=== PATIENT | male | born 1950 | race Caucasian/White ===

== ENCOUNTER 2018-09-30 12:18 | Inpatient (IN) | payer OTHER ==
[~2018-09-30] VITALS: Ht 180.3 cm; Wt 75.6 kg
[2018-09-30] MEDS ORDERED: ZONI100 PO (13:05)
[2018-09-30] MEDS ORDERED: TOPI25 PO (13:05)
[2018-09-30] MEDS ORDERED: CARB1TAB35 PO (13:05)
[2018-09-30] MEDS ORDERED: AMAN100C12 PO (13:05)
[2018-09-30] MEDS ORDERED: VITAD1000 PO (13:05)
[2018-09-30] MEDS ORDERED: OMEP10 PO (13:05)
[2018-09-30 13:24] LABS: BASOPHILS % (AUTO) 0.5 % (0.0-2.0); EOSINOPHILS % (AUTO) 1.1 % (1.0-6.0); HEMATOCRIT 45.4 % (41-53); HEMOGLOBIN 14.8 g/dL (13.5-17.5); LYMPHOCYTES # (AUTO) 1.1 K/uL (1.0-4.8); LYMPHOCYTES % (AUTO) 15.6 % (22.0-44.0); MEAN CORPUSCULAR HEMOGLOBIN 29.9 pg (26.0-34.0); MEAN CORPUSCULAR HGB CONC 32.6 G/dL (31.0-37.0); MEAN CORPUSCULAR VOLUME 92 fL (80-100); MONOCYTES # (AUTO) 0.8 K/uL (0.1-1.0); MONOCYTES % (AUTO) 11.7 % (2.0-9.0); NEUTROPHILS % (AUTO) 71.1 % (40.0-70.0); PLATELET COUNT (AUTO) 206 K/uL (150-450); RED BLOOD CELL COUNT(AUTO) 4.96 MIL/uL (4.50-5.90); RED CELL DISTRIBUTION WIDTH 13.8 % (11.5-14.5)
[2018-09-30 13:38] LABS: PROTHROMBIN TIME 10.7 SEC (9.4-11.6)
[2018-09-30 14:09] LABS: APPEARANCE,URINE CLOUDY (CLEAR); BILIRUBIN,URINE NEGATIVE (NEGATIVE); GLUCOSE, URINE (UA) NEGATIVE (NEGATIVE); KETONES,URINE NEGATIVE (NEGATIVE); LEUKOCYTE ESTERASE ,URINE SMALL (NEGATIVE); NITRATE,URINE NEGATIVE (NEGATIVE); OCCULT BLOOD,URINE NEGATIVE (NEGATIVE); PROTEIN,URINE NEGATIVE (NEGATIVE); UROBILINOGEN,URINE 0.2 mg/dL (<=1.0)
[2018-09-30 14:14] LABS: AMPHET/METH SCREEN,URINE NEGATIVE (NEGATIVE); BARBITURATE SCREEN, URINE NEGATIVE (NEGATIVE); BENZODIAZEPINES SCREEN,URINE NEGATIVE (NEGATIVE); CANNABINOID SCREEN,URINE NEGATIVE (NEGATIVE); COCAINE SCREEN,URINE NEGATIVE (NEGATIVE); METHADONE SCREEN, URINE NEGATIVE (NEGATIVE); OPIATE SCREEN,URINE NEGATIVE (NEGATIVE); PHENCYCLIDINE SCREEN,URINE NEGATIVE (NEGATIVE)
[2018-09-30 14:24] LABS: BACTERIA,URINE None Seen /HPF (None Seen); RBC,URINE None Seen /HPF (0-2); SQUAMOUS EPITHELIAL CELL,UR Few /LPF (None Seen); WBC,URINE 0-2 /HPF (0-5)
[2018-09-30 14:28] LABS: ANION GAP 8 mmol/L (8-16); CALCIUM, TOTAL 8.5 mg/dL (8.8-10.5); CARBON DIOXIDE 25 mmol/L (22-29); CHLORIDE 105 mmol/L (98-107); CREATININE 1.04 mg/dL (0.60-1.30); GLOMERULAR FILTR. RATE CALC > 60 mL/min (>60); GLUCOSE,RANDOM 99 mg/dL (70-110); POTASSIUM 3.8 mmol/L (3.5-5.1); SODIUM SERUM 138 mmol/L (136-145); UREA NITROGEN, BLOOD 19 mg/dL (7-18)
[2018-09-30 14:34] LABS: ALANINE AMINOTRANSFERASE 30 U/L (12-78); ALBUMIN 3.5 g/dL (3.4-5.0); ALKALINE PHOSPHATASE 97 U/L (46-116); ASPARTATE AMINOTRANSFERASE 25 U/L (15-37); BILIRUBIN,TOTAL 0.5 mg/dL (0.1-1.0)
[2018-09-30] MEDS ORDERED: ASPIRIN 325 MG TABLET PO ONE (15:30)
[2018-09-30] MEDS ORDERED: ONDANSETRON HCL 4 MG/2 ML VIAL IVP ONE (15:30)
[2018-09-30] MEDS ORDERED: 0.9% SODIUM CHLORIDE 10 ML SYRINGE IVP PRN (16:00)
[2018-09-30] MEDS ORDERED: ONDANSETRON HCL 4 MG/2 ML VIAL IVP PRN (16:00)
[2018-09-30] MEDS ORDERED: ACETAMINOPHEN 325 MG TABLET PO PRN ×2 (16:00→20:00)
[2018-09-30] MEDS ORDERED: MAGNESIUM HYDROXIDE SUSPENSION 30 ML UDCUP PO PRN (20:00)
[2018-09-30] MEDS ORDERED: SODIUM CHLORIDE 0.45% 1,000 ML IV ONE (20:15)
[2018-09-30 21:07] VITALS: BP 158/88
[2018-09-30] MEDS: DOCUSATE SODIUM 100 MG CAPSULE PO SCH (21:23)
[2018-09-30] MEDS: FAMOTIDINE 20 MG TABLET PO SCH (21:24)
[2018-09-30] MEDS: HEPARIN SODIUM,PORCINE 5,000 UNITS/ML VIAL SQ SCH (23:37)
[2018-10-01 00:32] VITALS: BP 140/78
[2018-10-01 05:38] VITALS: BP 136/76
[2018-10-01 07:54] VITALS: BP 129/74
[2018-10-01 08:34] LABS: BASOPHILS % (AUTO) 0.5 % (0.0-2.0); EOSINOPHILS % (AUTO) 1.3 % (1.0-6.0); HEMATOCRIT 44.1 % (41-53); HEMOGLOBIN 14.8 g/dL (13.5-17.5); LYMPHOCYTES # (AUTO) 1.9 K/uL (1.0-4.8); LYMPHOCYTES % (AUTO) 22.2 % (22.0-44.0); MEAN CORPUSCULAR HGB CONC 33.7 G/dL (31.0-37.0); MEAN CORPUSCULAR VOLUME 89 fL (80-100); MONOCYTES # (AUTO) 1.1 K/uL (0.1-1.0); NEUTROPHILS # (AUTO) 5.3 K/uL (1.8-7.7); PLATELET COUNT (AUTO) 202 K/uL (150-450); RED BLOOD CELL COUNT(AUTO) 4.94 MIL/uL (4.50-5.90)
[2018-10-01] MEDS: DOCUSATE SODIUM 100 MG CAPSULE PO SCH (08:48)
[2018-10-01] MEDS: FAMOTIDINE 20 MG TABLET PO SCH (08:48)
[2018-10-01] MEDS: HEPARIN SODIUM,PORCINE 5,000 UNITS/ML VIAL SQ SCH (08:49)
[2018-10-01] MEDS ORDERED: ASPIRIN 81 MG CHEWABLE TABLET PO SCH (09:00)
[2018-10-01] MEDS ORDERED: TOPIRAMATE 25 MG TABLET PO SCH (09:00)
[2018-10-01] MEDS ORDERED: CARBIDOPA/LEVODOPA 25-100 MG ER TABLET PO SCH (09:00)
[2018-10-01] MEDS ORDERED: AMANTADINE HCL 100 MG CAPSULE PO SCH (09:00)
[2018-10-01 09:01] LABS: ALANINE AMINOTRANSFERASE 48 U/L (12-78); ALBUMIN 3.5 g/dL (3.4-5.0); ALKALINE PHOSPHATASE 99 U/L (46-116); ANION GAP 8 mmol/L (8-16); ASPARTATE AMINOTRANSFERASE 28 U/L (15-37); BILIRUBIN,TOTAL 0.6 mg/dL (0.1-1.0); CALCIUM, TOTAL 8.8 mg/dL (8.8-10.5); CARBON DIOXIDE 25 mmol/L (22-29); CHLORIDE 106 mmol/L (98-107); CREATININE 0.86 mg/dL (0.60-1.30); GLOMERULAR FILTR. RATE CALC > 60 mL/min (>60); GLUCOSE,RANDOM 93 mg/dL (70-110); POTASSIUM 3.7 mmol/L (3.5-5.1); SODIUM SERUM 139 mmol/L (136-145); TOTAL PROTEIN, SERUM 6.9 g/dL (6.4-8.2); UREA NITROGEN, BLOOD 18 mg/dL (7-18)
[2018-10-01 11:56] VITALS: BP 122/75
[2018-10-01] MEDS ORDERED: ASPI-1182 PO (15:06)
== END 2018-10-01 15:30 | disposition home or self-care (01) | DRG 74 ==
LOC: EMS 12:19 → 5N 18:10
PROVIDERS: ADMIT Internal Medicine; ATTEND Internal Medicine
DX: G90.8 Other disorders of autonomic nervous system (principal); G20 Parkinson's disease; G40.909 Epilepsy, unspecified, not intractable, without status epilepticus; I10 Essential (primary) hypertension; W08.XXXA Fall from other furniture, initial encounter; Y93.89 Activity, other specified; Y92.89 Other specified places as the place of occurrence of the external cause; Y99.8 Other external cause status; Z79.899 Other long term (current) drug therapy
CPT/HCPCS: 70450; 72170; 93005; 93306; 93880; 96361; 96372; 96374; 97116; 97162; 99291; G0378; J1644; J2405

== ENCOUNTER 2021-10-09 18:10 | Inpatient (IN) | payer MEDICAID, OTHER ==
[~2021-10-09] VITALS: Ht 185.4 cm; Wt 78.4 kg
[~2021-10-09 18:10] MED LIST: AMAN100C14 PO; ASPI-1444 PO; CARB1TAB35 PO; CHOL100018 PO; OMEP10 PO; TOPI25 PO; ZONI100C87 PO
[2021-10-09 20:10] LABS: BASOPHILS % (AUTO) 0.5 % (0.0-2.0); EOSINOPHILS % (AUTO) 1.1 % (1.0-6.0); HEMATOCRIT 47.5 % (41-53); HEMOGLOBIN 15.8 g/dL (13.5-17.5); LYMPHOCYTES # (AUTO) 1.6 K/uL (1.0-4.8); LYMPHOCYTES % (AUTO) 21.8 % (22.0-44.0); MEAN CORPUSCULAR HEMOGLOBIN 30.2 pg (26.0-34.0); MEAN CORPUSCULAR HGB CONC 33.3 G/dL (31.0-37.0); MEAN CORPUSCULAR VOLUME 91 fL (80-100); MONOCYTES # (AUTO) 1.1 K/uL (0.1-1.0); MONOCYTES % (AUTO) 15.1 % (2.0-9.0); NEUTROPHILS # (AUTO) 4.6 K/uL (1.8-7.7); NEUTROPHILS % (AUTO) 61.5 % (40.0-70.0); PLATELET COUNT (AUTO) 212 K/uL (150-450); RED BLOOD CELL COUNT(AUTO) 5.24 MIL/uL (4.50-5.90); RED CELL DISTRIBUTION WIDTH 13.8 % (11.5-14.5)
[2021-10-09 20:17] LABS: ANION GAP 12 mmol/L (8-16); CALCIUM, TOTAL 9.5 mg/dL (8.8-10.5); CARBON DIOXIDE 26 mmol/L (22-29); CHLORIDE 101 mmol/L (98-107); CREATININE 0.99 mg/dL (0.60-1.30); GLUCOSE,RANDOM 104 mg/dL (70-110); SODIUM SERUM 139 mmol/L (136-145); UREA NITROGEN, BLOOD 19 mg/dL (7-18)
[2021-10-09 20:18] LABS: GLOMERULAR FILTR. RATE CALC > 60 mL/min (>60)
[2021-10-09 20:21] LABS: INR 1.1 (0.9-1.1); PROTHROMBIN TIME 11.4 SEC (9.4-11.6)
[2021-10-09 20:25] LABS: LACTIC ACID 1.3 mmol/L (0.4-2.0)
[2021-10-09 20:29] LABS: COVID AG,FIA SOURCE NASAL SWAB
[2021-10-09 20:42] LABS: ALANINE AMINOTRANSFERASE 55 U/L (12-78); ALBUMIN 4.1 g/dL (3.4-5.0); ALKALINE PHOSPHATASE 123 U/L (46-116); ASPARTATE AMINOTRANSFERASE 44 U/L (15-37); BILIRUBIN,TOTAL 1.1 mg/dL (0.1-1.0); CREATINE KINASE, TOTAL ONLY 653 U/L (39-308); TOTAL PROTEIN, SERUM 8.6 g/dL (6.4-8.2)
[2021-10-09 21:13] LABS: ERYTHROCYTE SEDIMENTATION RATE 17 MM/HR (0-15)
[2021-10-09] MEDS ORDERED: IOHEXOL 350 MG/ML 100 ML VIAL ONE (21:28)
[2021-10-09] MEDS ORDERED: SODIUM CHLORIDE 0.9% 100 ML ONE (21:28)
[2021-10-10] MEDS ORDERED: ONDANSETRON HCL 4 MG/2 ML VIAL IVP PRN (01:00)
[2021-10-10 01:41] LABS: APPEARANCE,URINE CLEAR (CLEAR); BILIRUBIN,URINE NEGATIVE (NEGATIVE); GLUCOSE, URINE (UA) NEGATIVE (NEGATIVE); KETONES,URINE 40 mg/dL (NEGATIVE); LEUKOCYTE ESTERASE ,URINE NEGATIVE (NEGATIVE); NITRATE,URINE NEGATIVE (NEGATIVE); OCCULT BLOOD,URINE NEGATIVE (NEGATIVE); PH,URINE 6.5 (5.0-8.0); PROTEIN,URINE NEGATIVE (NEGATIVE)
[2021-10-10] MEDS: 1: MAGNESIUM SULFATE 2 GM, MVI, ADULT NO.1 WITH VIT K 10 ML, THIAMINE 100 MG, FOLIC ACID IV SCH ×15 (01:48→21:56)
[2021-10-10 02:30] VITALS: BP 137/82
[2021-10-10 08:53] VITALS: BP 138/71
[2021-10-10] MEDS: CHOLECALCIFEROL (VIT D3) 1,000 UNITS [25 MCG] TABLET NG SCH (09:00)
[2021-10-10] MEDS: TOPIRAMATE 25 MG TABLET NG SCH (09:00)
[2021-10-10] MEDS: AMANTADINE HCL 100 MG CAPSULE NG SCH (09:00)
[2021-10-10] MEDS: OMEPRAZOLE 10 MG CAPSULE NG SCH ×2 (09:00→21:00)
[2021-10-10] MEDS: ASPIRIN 81 MG CHEWABLE TABLET NG SCH (09:00)
[2021-10-10] MEDS: ZONISAMIDE 100 MG CAPSULE NG SCH ×2 (09:00→21:00)
[2021-10-10] MEDS: CARBIDOPA/LEVODOPA 25-100 MG TABLET NG SCH (09:00)
[2021-10-10] MEDS: HEPARIN SODIUM,PORCINE 5,000 UNITS/ML VIAL SQ SCH ×2 (10:22→16:45)
[2021-10-10] MEDS ORDERED: SODIUM CHLORIDE 0.9% 1,000 ML ONE (12:21)
[2021-10-10 15:36] VITALS: BP 131/63
[2021-10-10 19:45] VITALS: BP 127/58
[2021-10-11] MEDS: HEPARIN SODIUM,PORCINE 5,000 UNITS/ML VIAL SQ SCH ×4 (00:25→23:06)
[2021-10-11 04:40] VITALS: BP 142/72
[2021-10-11] MEDS ORDERED: SODIUM CHLORIDE 0.9% 1,000 ML ONE ×3 (07:04→10:14)
[2021-10-11] MEDS: ASPIRIN 81 MG CHEWABLE TABLET NG SCH (09:00)
[2021-10-11] MEDS: OMEPRAZOLE 10 MG CAPSULE NG SCH ×2 (09:00→20:40)
[2021-10-11] MEDS: CARBIDOPA/LEVODOPA 25-100 MG TABLET NG SCH (09:00)
[2021-10-11] MEDS: AMANTADINE HCL 100 MG CAPSULE NG SCH (09:00)
[2021-10-11] MEDS: TOPIRAMATE 25 MG TABLET NG SCH (09:00)
[2021-10-11] MEDS: ZONISAMIDE 100 MG CAPSULE NG SCH ×2 (09:00→20:40)
[2021-10-11] MEDS: CHOLECALCIFEROL (VIT D3) 1,000 UNITS [25 MCG] TABLET NG SCH (09:00)
[2021-10-11] MEDS: 1: MAGNESIUM SULFATE 2 GM, MVI, ADULT NO.1 WITH VIT K 10 ML, THIAMINE 100 MG, FOLIC ACID IV SCH ×10 (10:00→18:30)
[2021-10-11] MEDS ORDERED: LIDOCAINE/PF 2% 5 ML VIAL IM ONE (12:00)
[2021-10-11] MEDS ORDERED: PROPOFOL 1% 20 ML VIAL IVP ONE (12:00)
[2021-10-11 12:27] VITALS: BP 128/68
[2021-10-11] MEDS ORDERED: ACETAMINOPHEN 325 MG TABLET PO PRN (13:15)
[2021-10-11 16:00] VITALS: BP 144/78
[2021-10-11 17:13] LABS: APPEARANCE,URINE CLEAR (CLEAR); BILIRUBIN,URINE NEGATIVE (NEGATIVE); GLUCOSE, URINE (UA) 100 mg/dL (NEGATIVE); KETONES,URINE >=80 mg/dL (NEGATIVE); LEUKOCYTE ESTERASE ,URINE NEGATIVE (NEGATIVE); NITRATE,URINE NEGATIVE (NEGATIVE); OCCULT BLOOD,URINE NEGATIVE (NEGATIVE); PH,URINE 5.5 (5.0-8.0); PROTEIN,URINE TRACE (NEGATIVE); UROBILINOGEN,URINE 0.2 mg/dL (<=1.0)
[2021-10-11 17:15] LABS: BACTERIA,URINE None Seen /HPF (None Seen); RBC,URINE None Seen /HPF (0-2); SQUAMOUS EPITHELIAL CELL,UR None Seen /LPF (None Seen); WBC,URINE None Seen /HPF (0-5)
[2021-10-11 21:13] VITALS: BP 143/77
[2021-10-12 02:50] LABS: GLUCOMETER DEV NAME(LOC) 6N.1; GLUCOSE,POINT OF CARE 145 MG/DL (70-110)
[2021-10-12] MEDS ORDERED: SODIUM CHLORIDE 0.9% 1,000 ML ONE (03:35)
[2021-10-12] MEDS: 1: MAGNESIUM SULFATE 2 GM, MVI, ADULT NO.1 WITH VIT K 10 ML, THIAMINE 100 MG, FOLIC ACID IV SCH ×10 (03:44→16:10)
[2021-10-12 04:22] VITALS: BP 137/70
[2021-10-12 07:13] LABS: EOSINOPHILS % (AUTO) 0 % (1.0-6.0); HEMATOCRIT 43.3 % (41-53); HEMOGLOBIN 14.5 g/dL (13.5-17.5); LYMPHOCYTES % (AUTO) 5.7 % (22.0-44.0); MEAN CORPUSCULAR HEMOGLOBIN 30.7 pg (26.0-34.0); MEAN CORPUSCULAR HGB CONC 33.6 G/dL (31.0-37.0); MEAN CORPUSCULAR VOLUME 91 fL (80-100); MONOCYTES # (AUTO) 1.5 K/uL (0.1-1.0); MONOCYTES % (AUTO) 8.6 % (2.0-9.0); NEUTROPHILS # (AUTO) 14.9 K/uL (1.8-7.7); PLATELET COUNT (AUTO) 176 K/uL (150-450); RED BLOOD CELL COUNT(AUTO) 4.74 MIL/uL (4.50-5.90); RED CELL DISTRIBUTION WIDTH 13.6 % (11.5-14.5)
[2021-10-12 07:21] LABS: NEUTROPHILS % (AUTO) 85.7 % (40.0-70.0)
[2021-10-12 07:40] LABS: ANION GAP 14 mmol/L (8-16); CALCIUM, TOTAL 8.5 mg/dL (8.8-10.5); CARBON DIOXIDE 20 mmol/L (22-29); CHLORIDE 108 mmol/L (98-107); CREATININE 0.74 mg/dL (0.60-1.30); GLUCOSE,RANDOM 121 mg/dL (70-110); POTASSIUM 3.7 mmol/L (3.5-5.1); SODIUM SERUM 142 mmol/L (136-145); UREA NITROGEN, BLOOD 18 mg/dL (7-18)
[2021-10-12 07:50] LABS: GLOMERULAR FILTR. RATE CALC > 60 mL/min (>60)
[2021-10-12] MEDS: ZONISAMIDE 100 MG CAPSULE NG SCH ×2 (08:23→21:03)
[2021-10-12] MEDS: CARBIDOPA/LEVODOPA 25-100 MG TABLET NG SCH ×3 (08:23→21:03)
[2021-10-12] MEDS: AMANTADINE HCL 100 MG CAPSULE NG SCH (08:23)
[2021-10-12] MEDS: TOPIRAMATE 25 MG TABLET NG SCH (08:24)
[2021-10-12] MEDS: CHOLECALCIFEROL (VIT D3) 1,000 UNITS [25 MCG] TABLET NG SCH (08:25)
[2021-10-12] MEDS: HEPARIN SODIUM,PORCINE 5,000 UNITS/ML VIAL SQ SCH ×2 (08:25→16:27)
[2021-10-12] MEDS: OMEPRAZOLE 10 MG CAPSULE NG SCH ×2 (08:26→21:03)
[2021-10-12] MEDS: ASPIRIN 81 MG CHEWABLE TABLET NG SCH (08:26)
[2021-10-12 09:03] VITALS: BP 155/82
[2021-10-12 20:36] VITALS: BP 133/70
[2021-10-13] MEDS: HEPARIN SODIUM,PORCINE 5,000 UNITS/ML VIAL SQ SCH ×3 (01:53→16:02)
[2021-10-13] MEDS ORDERED: SODIUM CL IRRIG SOLN BOTTLE 0 ML IRRIG ONE (02:08)
[2021-10-13] MEDS ORDERED: IPRATROPIUM BROMIDE 0.5 MG/2.5 ML NEB SOLUTION NEB PRN (02:15)
[2021-10-13] MEDS ORDERED: ALBUTEROL SULFATE 2.5 MG/0.5 ML NEB SOLUTION NEB PRN (02:15)
[2021-10-13] MEDS ORDERED: SODIUM CHLORIDE 0.9% 1,000 ML ONE (03:39)
[2021-10-13] MEDS: 1: MAGNESIUM SULFATE 2 GM, MVI, ADULT NO.1 WITH VIT K 10 ML, THIAMINE 100 MG, FOLIC ACID IV SCH ×15 (03:55→20:18)
[2021-10-13 04:39] VITALS: BP 144/78
[2021-10-13 06:55] LABS: BASOPHILS % (AUTO) 0.1 % (0.0-2.0); EOSINOPHILS % (AUTO) 0 % (1.0-6.0); HEMATOCRIT 43.8 % (41-53); HEMOGLOBIN 14.8 g/dL (13.5-17.5); LYMPHOCYTES # (AUTO) 0.9 K/uL (1.0-4.8); LYMPHOCYTES % (AUTO) 7.2 % (22.0-44.0); MEAN CORPUSCULAR HEMOGLOBIN 30.8 pg (26.0-34.0); MEAN CORPUSCULAR HGB CONC 33.8 G/dL (31.0-37.0); MEAN CORPUSCULAR VOLUME 91 fL (80-100); MONOCYTES # (AUTO) 1.2 K/uL (0.1-1.0); MONOCYTES % (AUTO) 9.9 % (2.0-9.0); NEUTROPHILS # (AUTO) 10.4 K/uL (1.8-7.7); NEUTROPHILS % (AUTO) 82.8 % (40.0-70.0); PLATELET COUNT (AUTO) 171 K/uL (150-450); RED BLOOD CELL COUNT(AUTO) 4.81 MIL/uL (4.50-5.90); RED CELL DISTRIBUTION WIDTH 13.9 % (11.5-14.5)
[2021-10-13 07:01] LABS: ANION GAP 12 mmol/L (8-16); CARBON DIOXIDE 21 mmol/L (22-29); CHLORIDE 107 mmol/L (98-107); CREATININE 0.72 mg/dL (0.60-1.30); GLUCOSE,RANDOM 104 mg/dL (70-110); POTASSIUM 3.6 mmol/L (3.5-5.1); SODIUM SERUM 140 mmol/L (136-145); UREA NITROGEN, BLOOD 18 mg/dL (7-18)
[2021-10-13 07:12] LABS: CALCIUM, TOTAL 8.3 mg/dL (8.8-10.5)
[2021-10-13 07:13] LABS: GLOMERULAR FILTR. RATE CALC > 60 mL/min (>60)
[2021-10-13 07:36] VITALS: BP 151/81
[2021-10-13] MEDS: TOPIRAMATE 25 MG TABLET NG SCH (08:16)
[2021-10-13] MEDS: CHOLECALCIFEROL (VIT D3) 1,000 UNITS [25 MCG] TABLET NG SCH (08:16)
[2021-10-13] MEDS: CARBIDOPA/LEVODOPA 25-100 MG TABLET NG SCH ×3 (08:16→21:45)
[2021-10-13] MEDS: AMANTADINE HCL 100 MG CAPSULE NG SCH (08:16)
[2021-10-13] MEDS: ASPIRIN 81 MG CHEWABLE TABLET NG SCH (08:17)
[2021-10-13] MEDS: ZONISAMIDE 100 MG CAPSULE NG SCH ×2 (08:17→21:45)
[2021-10-13] MEDS: OMEPRAZOLE 10 MG CAPSULE NG SCH ×2 (08:17→21:45)
[2021-10-13 16:06] VITALS: BP 156/82
[2021-10-13 19:53] VITALS: BP 137/77
[2021-10-14] MEDS: HEPARIN SODIUM,PORCINE 5,000 UNITS/ML VIAL SQ SCH ×4 (00:26→23:57)
[2021-10-14] MEDS ORDERED: SODIUM CHLORIDE 0.9% 1,000 ML ONE (00:40)
[2021-10-14 04:32] VITALS: BP 127/74
[2021-10-14] MEDS: 1: MAGNESIUM SULFATE 2 GM, MVI, ADULT NO.1 WITH VIT K 10 ML, THIAMINE 100 MG, FOLIC ACID IV SCH ×10 (06:52→16:47)
[2021-10-14 07:51] LABS: BASOPHILS % (AUTO) 0.3 % (0.0-2.0); EOSINOPHILS % (AUTO) 0.1 % (1.0-6.0); HEMATOCRIT 43.5 % (41-53); HEMOGLOBIN 14.9 g/dL (13.5-17.5); LYMPHOCYTES % (AUTO) 9.2 % (22.0-44.0); MEAN CORPUSCULAR HEMOGLOBIN 31.2 pg (26.0-34.0); MEAN CORPUSCULAR HGB CONC 34.4 G/dL (31.0-37.0); MEAN CORPUSCULAR VOLUME 91 fL (80-100); MONOCYTES # (AUTO) 1.3 K/uL (0.1-1.0); MONOCYTES % (AUTO) 11.9 % (2.0-9.0); NEUTROPHILS # (AUTO) 8.4 K/uL (1.8-7.7); NEUTROPHILS % (AUTO) 78.5 % (40.0-70.0); PLATELET COUNT (AUTO) 184 K/uL (150-450); RED BLOOD CELL COUNT(AUTO) 4.79 MIL/uL (4.50-5.90); RED CELL DISTRIBUTION WIDTH 13.9 % (11.5-14.5)
[2021-10-14 07:55] LABS: ANION GAP 9 mmol/L (8-16); CALCIUM, TOTAL 8.3 mg/dL (8.8-10.5); CARBON DIOXIDE 21 mmol/L (22-29); CHLORIDE 112 mmol/L (98-107); CREATININE 0.77 mg/dL (0.60-1.30); GLUCOSE,RANDOM 146 mg/dL (70-110); POTASSIUM 3.5 mmol/L (3.5-5.1); SODIUM SERUM 142 mmol/L (136-145); UREA NITROGEN, BLOOD 19 mg/dL (7-18)
[2021-10-14 07:56] LABS: GLOMERULAR FILTR. RATE CALC > 60 mL/min (>60)
[2021-10-14] MEDS: CARBIDOPA/LEVODOPA 25-100 MG TABLET NG SCH ×3 (08:14→20:46)
[2021-10-14] MEDS: OMEPRAZOLE 10 MG CAPSULE NG SCH ×2 (08:14→20:46)
[2021-10-14] MEDS: TOPIRAMATE 25 MG TABLET NG SCH (08:15)
[2021-10-14] MEDS: ASPIRIN 81 MG CHEWABLE TABLET NG SCH (08:15)
[2021-10-14] MEDS: ZONISAMIDE 100 MG CAPSULE NG SCH ×2 (08:15→20:46)
[2021-10-14] MEDS: AMANTADINE HCL 100 MG CAPSULE NG SCH (08:15)
[2021-10-14] MEDS: CHOLECALCIFEROL (VIT D3) 1,000 UNITS [25 MCG] TABLET NG SCH (08:15)
[2021-10-14 08:47] VITALS: BP 174/94
[2021-10-14 16:22] VITALS: BP 168/77
[2021-10-14 19:50] VITALS: BP 160/79
[2021-10-14] MEDS ORDERED: WATER FOR IRRIGATION,STERILE 1000 ML SOLUTION BOTTLE ONE (20:31)
[2021-10-14] MEDS: AmLODIPine BESYLATE 5 MG TABLET PO SCH (20:46)
[2021-10-15] VITALS (8 sets, daily range): BP systolic 100–184; BP diastolic 55–91
[2021-10-15] MEDS: CloNIDine HCL 0.1 MG TABLET PO PRN ×2 (01:50→08:37)
[2021-10-15 07:04] LABS: MAGNESIUM 2.3 mg/dL (1.80-2.40); PHOSPHORUS 2.4 mg/dL (2.5-4.9)
[2021-10-15] MEDS: HEPARIN SODIUM,PORCINE 5,000 UNITS/ML VIAL SQ SCH ×3 (08:00→23:17)
[2021-10-15] MEDS: OMEPRAZOLE 10 MG CAPSULE NG SCH ×2 (08:37→19:43)
[2021-10-15] MEDS: TOPIRAMATE 25 MG TABLET NG SCH (08:37)
[2021-10-15] MEDS: AMANTADINE HCL 100 MG CAPSULE NG SCH (08:37)
[2021-10-15] MEDS: CHOLECALCIFEROL (VIT D3) 1,000 UNITS [25 MCG] TABLET NG SCH (08:37)
[2021-10-15] MEDS: AmLODIPine BESYLATE 5 MG TABLET PO SCH (08:37)
[2021-10-15] MEDS: CARBIDOPA/LEVODOPA 25-100 MG TABLET NG SCH ×3 (08:37→19:43)
[2021-10-15] MEDS: ASPIRIN 81 MG CHEWABLE TABLET NG SCH (08:37)
[2021-10-15] MEDS: ZONISAMIDE 100 MG CAPSULE NG SCH ×2 (08:38→19:43)
[2021-10-15] MEDS ORDERED: SODIUM CHLORIDE 0.9% 1,000 ML ONE (10:37)
[2021-10-15] MEDS ORDERED: VANCOMYCIN HCL 1 GM/D5% WATER 200 ML IV ONE (11:00)
[2021-10-15] MEDS ORDERED: CHOL-35 PO (11:13)
[2021-10-16 04:20] VITALS: BP 142/67
[2021-10-16] MEDS ORDERED: PROPOFOL 1% 20 ML VIAL IVP ONE (06:06)
[2021-10-16] MEDS ORDERED: LIDOCAINE/PF 2% 5 ML VIAL IM ONE (06:06)
[2021-10-16 08:34] VITALS: BP 163/88
[2021-10-16] MEDS: ASPIRIN 81 MG CHEWABLE TABLET NG SCH (09:26)
[2021-10-16] MEDS: HEPARIN SODIUM,PORCINE 5,000 UNITS/ML VIAL SQ SCH ×3 (09:26→23:20)
[2021-10-16] MEDS: AMANTADINE HCL 100 MG CAPSULE NG SCH (09:27)
[2021-10-16] MEDS: TOPIRAMATE 25 MG TABLET NG SCH (09:27)
[2021-10-16] MEDS: OMEPRAZOLE 10 MG CAPSULE NG SCH ×2 (09:27→20:54)
[2021-10-16] MEDS: CARBIDOPA/LEVODOPA 25-100 MG TABLET NG SCH ×3 (09:27→20:54)
[2021-10-16] MEDS: AmLODIPine BESYLATE 5 MG TABLET PO SCH (09:28)
[2021-10-16] MEDS: CHOLECALCIFEROL (VIT D3) 1,000 UNITS [25 MCG] TABLET NG SCH (09:28)
[2021-10-16] MEDS: ZONISAMIDE 100 MG CAPSULE NG SCH ×2 (09:28→20:54)
[2021-10-16] MEDS ORDERED: SODIUM,POTASSIUM PHOSPHATES POWDER PACKET PO ONE (14:30)
[2021-10-16 19:16] VITALS: BP 133/67
[2021-10-16] MEDS ORDERED: SCOPOLAMINE HYDROBROMIDE 1 MG/72 HOUR PATCH TD SCH (20:00)
[2021-10-17 04:16] VITALS: BP 167/70
[2021-10-17] MEDS: CloNIDine HCL 0.1 MG TABLET PO PRN (04:32)
[2021-10-17 08:08] VITALS: BP 115/62
[2021-10-17] MEDS: CARBIDOPA/LEVODOPA 25-100 MG TABLET NG SCH ×2 (09:18→16:36)
[2021-10-17] MEDS: AMANTADINE HCL 100 MG CAPSULE NG SCH (09:18)
[2021-10-17] MEDS: TOPIRAMATE 25 MG TABLET NG SCH (09:18)
[2021-10-17] MEDS: ASPIRIN 81 MG CHEWABLE TABLET NG SCH (09:18)
[2021-10-17] MEDS: OMEPRAZOLE 10 MG CAPSULE NG SCH (09:18)
[2021-10-17] MEDS: CHOLECALCIFEROL (VIT D3) 1,000 UNITS [25 MCG] TABLET NG SCH (09:19)
[2021-10-17] MEDS: ZONISAMIDE 100 MG CAPSULE NG SCH (09:21)
[2021-10-17] MEDS: AmLODIPine BESYLATE 5 MG TABLET PO SCH (09:23)
[2021-10-17] MEDS: HEPARIN SODIUM,PORCINE 5,000 UNITS/ML VIAL SQ SCH ×2 (09:24→16:36)
[2021-10-17] MEDS ORDERED: LORazepam 2 MG TABLET PO PRN (14:15)
[2021-10-17 15:45] VITALS: BP 114/58
[2021-10-17] MEDS ORDERED: AMLO-257 PO (16:04)
[2021-10-17] MEDS ORDERED: SCOP1PAT12 TP (16:05)
== END 2021-10-17 18:15 | DRG 57 ==
LOC: EMS 18:16 → 6S 10-10 01:49
PROVIDERS: ADMIT Internal Medicine; ATTEND Internal Medicine
PROC: 0DJ08ZZ Inspection of Upper Intestinal Tract, Via Natural or Artificial Opening Endoscopic (ICD-10-PCS; principal; 2021-10-11 08:00)
PROC: 0DH63UZ Insertion of Feeding Device into Stomach, Percutaneous Approach (ICD-10-PCS; 2021-10-15)
PROC: 3E0G76Z Introduction of Nutritional Substance into Upper GI, Via Natural or Artificial Opening (ICD-10-PCS; 2021-10-15)
DX: G20 Parkinson's disease (principal); M62.82 Rhabdomyolysis; K21.00 Gastro-esophageal reflux disease with esophagitis, without bleeding; R62.7 Adult failure to thrive; I10 Essential (primary) hypertension; R79.89 Other specified abnormal findings of blood chemistry; Z20.822 Contact with and (suspected) exposure to COVID-19; Z79.899 Other long term (current) drug therapy; Z68.22 Body mass index [BMI] 22.0-22.9, adult; Z79.82 Long term (current) use of aspirin
CPT/HCPCS: 70450; 70491; 71045; 74018; 74230; 80048; 80053; 81001; 81003; 82550; 82962; 83605; 83735; 84100; 84484; 85025; 85610; 85651; 87040; 87081; 92526; 92610; 92611; 93005; 99285; J1644; J2704; J3370; J3411; J3475; J3490; J7030; J7050; Q9967; 36415-L1; 36415-TC